=== PATIENT | male | born 1985 | race African-American/Black ===

== ENCOUNTER 2021-01-27 10:48 | Emergency (ER) | payer OTHER, SELFPAY ==
[2021-01-27 10:50] VITALS: BP 133/79; PULSE 83; RESP 20; TEMP 36.8; O2SAT 100; BMI 25.7
--- NOTE | 2021-01-27 11:22 | RAD_ITS ---
STUDY: X-RAY - BILATERAL RIBS WITH CHEST REASON FOR EXAM: Male, 35 years old. Rib pain TECHNIQUE - RIBS: 4 view(s) of the ribs. TECHNIQUE - CHEST: Single PA view of the chest. COMPARISON: None. FINDINGS - RIBS : Normal visualized ribs without a demonstrated fracture. FINDINGS - CHEST: The lungs are clear and expanded. There is no demonstrated pleural abnormality. Normal size heart. Normal mediastinum and jacy. Normal visualized pulmonary arteries. Normal visualized aortic arch and descending thoracic aorta. Normal visualized thoracic spine. Normal visualized ribs, clavicles, and shoulders. There is no demonstrated abnormality of the visualized soft tissue structures of the upper abdomen. RAD/Ribs Venkat Min 4V w/PA Chest IMPRESSION: RIBS: Normal x-ray examination of the bilateral ribs. CHEST: Normal x-ray examination of the chest. Electronically Signed: Bruce Gilbert MD at 12:20 EDT , Service support ,
--- NOTE | 2021-01-27 13:07 | EDS_ITS ---
HPI History of Present Illness Chief Complaint: Chest Other Informant: patient Onset/Context/Timing Onset: Days (4) Context: Gradual Onset Timing: Continuous Quality: Sharp Location: Right upper chest Worsened by: Deep breathing Relieved by: Nothing Narrative Narrative: Patient presents with right upper chest and rib pain that has been getting worse over the past 4 days. Patient denies any trauma or injury. Patient states the pain is over the right upper chest and radiates into his back. Patient states the pain is sharp. Patient states the pain is worse with deep breathing and certain movements. Patient states nothing seems to help with the pain. Patient denies any shortness of breath. Patient denies any nausea or vomiting. [facility] Medical History ADHD Home Medications dextroamphetamine-amphetamine [Adderall XR] mg PO DAILY 01/27/21 [History Last Taken Unknown] hydrocodone-acetaminophen 1 tab PO Q6H PRN PRN 3 Days #10 tablet 01/27/21 [Rx Last Taken Unknown] ibuprofen 600 mg PO Q6H PRN PRN #20 tablet 01/27/21 [Rx Last Taken Unknown] Allergy/AdvReac Type Severity Reaction Status Date / Time No Known Allergies Allergy Verified 01/27/21 10:50 Social History Smoking Status: Current every day smoker tobacco type: cigarettes ROS ROS ED Constitutional Constitutional ED: Denies chills or fever(s) Eyes Eyes: Denies blurry vision or change in vision ENT ENT ED: Denies rhinorrhea or sore throat Cardiovascular Cardiovascular: Reports chest pain; Denies palpitations Respiratory/Chest Respiratory/Chest: Denies cough or dyspnea Gastrointestinal Gastrointestinal: Reports nausea; Denies vomiting Genitourinary Genitourinary ED: Denies dysuria or hematuria Musculoskeletal Musculoskeletal: Reports back pain; Denies neck pain Integumentary Denies abscess or rash Neurologic Neurologic: Denies headache(s) or weakness Allergic/Immunologic Allergic/Immunologic ED: Denies mouth swelling or urticaria EXAM Physical Exam Const Vital Signs: 01/27/21 10:50 01/27/21 11:35 Temperature 98.2 F Temperature Source Temporal Pulse Rate 83 Respiratory Rate 20 H Respiratory Effort Normal Non-Labored Blood Pressure 133/79 H Blood Pressure Mean 97 Pulse Ox 100 Oxygen Delivery Method Room Air Positive well nourished and well developed General Appearance ED: well developed HEENT Reports moist mucous membranes Neck supple and no JVD Chest Wall Chest Narrative: There is reproducible tenderness over the right upper chest wall over the first 4 ribs. There is no bony crepitance or step-off. Resp normal respiratory effort and clear to auscultation bilaterally Cardio regular rate, regular rhythm and no murmurs GI normal to inspection, nondistended, normoactive bowel sounds and non-tender Palpation: soft Extremity normal to inspection General Extremety ED: Negative for edema or tenderness General Extremity: Negative for edema Neuro oriented x3, CN's II-XII intact bilaterally and no sensory deficits noted Sensorium / Orientation: alert Motor Exam: strength 5/5 throughout Psych mental status grossly normal Skin no rashes or lesions noted MDM MDM MDM Narrative Medical decision making narrative: X-rays of the ribs were obtained. There are 9 views. On my interpretation, there is no acute rib fracture. There is no pneumothorax. There is no cardiomegaly. There is no acute cardiopulmonary process. Radiologist also interpreted the x-rays and agrees. Patient was instructed to use ice to the area. Patient was given a prescription for ibuprofen. Patient was also given a prescription for a short course of [place] for severe pain. Patient was instructed to return if worse in any way. Patient understood and was agreeable with the plan. All questions were answered. Radiography Diagnostic Testing: Radiology Impression Ribs w/Chest X-Ray 01/27/21 11:22 IMPRESSION: RIBS: Normal x-ray examination of the bilateral ribs. CHEST: Normal x-ray examination of the chest. Electronically Signed: Bruce Gilbert MD at 12:20 EDT , Service support , Discharge Plan Triage Chief Complaint: Chest Other ED Provider: Juan C Robertson Dx/Rx/DC Orders Clinical Impression: Right-sided chest wall pain Instructions: ED Chest Wall Pain, Costochondritis Prescriptions: New hydrocodone-acetaminophen [hydrocodone-acetaminophen] 1 TABLET tablet 1 tab PO Q6H PRN PRN (Reason: pain, severe) 3 Days Qty: 10 RF: 0 ibuprofen 600 MG tablet 600 mg PO Q6H PRN PRN (Reason: pain) Qty: 20 RF: 0 No Action dextroamphetamine-amphetamine [Adderall XR] 20 mg capsule,extended release 24hr PO DAILY RF: 0 Referrals: [facility],Out of [NON-STAFF] - 3-5 Days Disposition Disposition: Home, Self Care Discharge Date/Time: 01/27/21 13:36
== END 2021-01-27 13:36 | disposition home or self-care (01) ==
LOC: ED 13:34
PROVIDERS: Emergency Provider Emergency Medicine
DX: R07.89 Other chest pain (principal); F90.9 Attention-deficit hyperactivity disorder, unspecified type; Z79.899 Other long term (current) drug therapy; F17.210 Nicotine dependence, cigarettes, uncomplicated
CPT/HCPCS: 71101; 71111; 99282